=== PATIENT | female | born 1985 | race Caucasian/White ===

== ENCOUNTER 2016-10-11 13:30 | Emergency (ER) | payer OTHER ==
[~2016-10-11] VITALS: Ht 162.6 cm; Wt 77.3 kg
[2016-10-11 13:35] VITALS: BP 131/85; PULSE 106; TEMP 36.7; O2SAT 99; Ht 162.6 cm; Wt 77.3 kg
[2016-10-11] MEDS ORDERED: IBUP-1050 PO (13:54)
[2016-10-11] MEDS ORDERED: PROPARACAINE HCL 0.5% OP SOLN 15 ML BTL OP STA (14:13)
--- NOTE | 2016-10-11 15:12 | EMERGENCY ROOM VISIT NOTE ---
History First contact with patient: 13:51 Chief Complaint: EYE PAIN Stated Complaint: EYE PAIN History of Present Illness The patient is a 31 year old female who presents to the Emergency Department by private vehicle for evaluation of redness and swelling to the LEFT eye. She reports that prior to getting in the shower she noticed irritation to the eye. After getting out of the shower she noticed swelling to the inner portion the eye which concerned her. She denies any recent illnesses. She reports no fevers or chills. She denies any blurry vision, double vision, headaches, dizziness, lightheadedness, nausea, or vomiting. Her tetanus status up-to- date. She rates her current discomfort as a 1/10. She does not use contacts or glasses. Review of Systems A complete 10-point Review of Systems was discussed with the patient, with pertinent positives and negatives listed in the History of Present Illness. All remaining Review of Systems questions can be considered negative unless otherwise specified. Past Medical/Surgical History Medical Problems: (1) Calf pain (2) Lumbar contusion (3) No Known Active Medical Problems (4) Urinary tract infection Social History Smoking Status: Current Every Day Smoker Smokeless Tobacco Use: No Alcohol Use: none Drug Use: other Marital Status: single Housing Status: lives with family Occupation Status: employed Current/Historical Medications Miscellaneous Medications Ibuprofen (Advil), 200 MG PO Allergies Coded Allergies: No Known Allergies (Unverified , 10/11/16) Physical Exam Vital Signs Date Time Temp Pulse Resp B/P Pulse Ox O2 Delivery O2 Flow Rate FiO2 10/11/16 13:35 36.7 106 17 131/85 99 Room Air Right Eye Acuity: 20/25 Left Eye Acuity: 20/25 Pain Rating (0-10): 1 Physical Exam VITAL SIGNS - Vital signs and nursing notes were reviewed. GENERAL - 31-year-old female appearing her stated age. Communicates well with provider and answers questions appropriately. HEAD - Normocephalic, Atraumatic. No Champion's Sign or Raccoon's Eyes. No depressed skull fractures palpable. EYES - PERRL with EOMI bilaterally. Sclera without noticeable foreign body or excoriations. Mild injection noted in the LEFT eye. Without subconjunctival hemorrhage. Palpebral conjunctiva with mild hyperemia and edema noted in the inferior portion of the LEFT eye. Slit lamp examination performed as further described. EARS - No deformities of external structures noted on gross examination bilaterally. Handle of malleus, umbo, cone of light, pars tensa/flaccid all easily visualized. NOSE - Midline and without cyanosis. Without discharge. MOUTH/OROPHARYNX - Without perioral cyanosis. Tongue midline with equal elevation of palate bilaterally. No tonsillar hypertrophy, erythema, or exudates noted. Good dentition noted. NECK - FROM assessed. No cervical lymphadenopathy noted. Medical Decision & Procedures Medications Administered Medications (Trade) Dose Ordered Sig/Andrea Route Start Time Stop Time Status Last Admin Dose Admin Proparacaine HCl (Alcaine 0.5% Oph Soln) 2 drops NOW STAT OP 10/11/16 14:13 10/11/16 14:14 DC 10/11/16 14:27 2 DROPS Diphenhydramine HCl (Benadryl Cap) 25 mg NOW ONCE PO 10/11/16 14:15 10/11/16 14:16 DC 10/11/16 14:27 25 MG ED Course Patient was seen and evaluated by myself. Visual acuity was assessed. The eye was stained using Alcaine and fluoresceins stain. No excoriations are noted. The patient was provided Benadryl for symptoms. She was encouraged to utilize cool compresses to the area as well as antihistamines. She was educated on worrisome symptoms for return visit to the emergency department. Patient discharged home afebrile and in good condition. Medical Decision Given the patient's presentation and exam findings, I did elect to perform the above-mentioned workup. The patient presents with irritation and some mild edema to the lower portion the eye. She has exam findings consistent with chemosis. She has no fever. She has no other exam findings consistent with infectious etiology. She will utilize cool compresses and Benadryl home. She will follow-up with her insurance billing clerk from today's visit or return for any changing/worsening symptoms. Patient discharged home afebrile and in good condition. In the evaluation and treatment of this patient, the following differential diagnoses were considered: Corneal Abrasion, Conjunctivitis, Eye Contusion, Globe Injury, Orbital Floor Injury (Blowout Fracture), Corneal Ulcer, Keratitis , Herpes Zoster Opthalmic, Blepharitis, Orbital Cellulitis, Iritis, Scleritis/ Episcleritis, Uveitis, Temporal Arteritis, Subconjunctival Hemorrhage. Impression Primary Impression: Chemosis of left conjunctiva Departure Information Dispostion Home / Self-Care Condition GOOD Referrals No Doctor, Assigned (PCP) Patient Instructions My [facility] Additional Instructions You have been treated in the Emergency Department for Chemosis of the LEFT eye. You should take Benadryl (diphenhydramine) 25-50 mg orally every 4-6 hours for the next 5-7 days. This medication is [id number] and you will NOT need a prescription to purchase this at your local pharmacy. You should continue taking the Benadryl for the COMPLETION of the 5-7 days. This is to prevent a rebound allergic reaction in the event that allergens are still present in your system. Please use cool compresses to the area for comfort. For pain control, you can use the following [id number] medicines (if >12 yo): - Regular strength (325mg/tab) Tylenol (acetaminophen) 2 tabs every 4-6 hours as needed. Do not exceed 12 tablets in a 24 hour period. Avoid taking more than 4 grams (4000 mg) of Tylenol per day. This includes any other sources of acetaminophen you may take on a regular basis. - Regular strength (200 mg/tab) Advil (ibuprofen) 1-2 tabs every 4-6 hours as needed. Do not exceed a dose of 3200 mg per day. Avoid rubbing your eyes for the next few days as this can cause irritation. Wear sunglasses when outside to help minimize your pain. You should relax in a quiet, dark room to help minimize your symptoms. You should seek evaluation of your Chemosis by an insurance billing clerk following your visit to the Emergency Department. The Emergency Department is not capable of treating optic issues long-term. You should call your insurance billing clerk as soon as possible to make an appointment for evaluation of your follow-up care. Return to the emergency department if you develop the following symptoms despite treatment course outlined above: blurry vision, loss of vision, fever, intractable pain, increased redness, swelling, or purulent discharge.
== END 2016-10-11 15:19 | disposition home or self-care (01) ==
LOC: C.EDB 13:32 → C.EDD 15:19
DX: H11.422 Conjunctival edema, left eye (principal); F17.200 Nicotine dependence, unspecified, uncomplicated; Z87.440 Personal history of urinary (tract) infections